=== PATIENT | male | born 1975 | race Caucasian/White ===

== ENCOUNTER 2019-01-09 15:09 | Emergency (ER) | payer SELFPAY ==
[~2019-01-09] VITALS: Ht 177.8 cm; Wt 95.3 kg
[2019-01-09 15:10] VITALS: BP 156/109
--- NOTE | 2019-01-09 15:12 | NUR ---
PT BROUGHT IN BY [place] [facility] TO ER BED 03
--- NOTE | 2019-01-09 15:15 | NUR ---
PT BIB BY PD FOR PREBOOK. PATIENT HAS HX OF MENTAL ILLNESS AND NEEDS TO BE MEDICALLY CLEARED PER PD. NO S/S OF DISTRESS NOTED AT THIS TIME
[2019-01-09] MEDS ORDERED: VENL150C1 PO (15:24)
[2019-01-09] MEDS ORDERED: SUMA100T1 PO (15:24)
[2019-01-09] MEDS ORDERED: LAM25 PO (15:24)
[2019-01-09] MEDS ORDERED: VENLAFAXINE 37.5 MG TAB PO STA (15:54)
[2019-01-09] MEDS ORDERED: VENLAFAXINE XR 75 MG CAPER PO STA (16:15)
[2019-01-09 16:43] VITALS: BP 156/109
--- NOTE | 2019-01-09 16:43 | NUR ---
PATIENT BIB [employer]. PATIENT EXAMINED BY DR. GHOTRA. PATIENT MEDICALLY CLEARED AND RELEASED IN CUSTODY IN STABLE CONDITION. ORIGINAL PRE-BOOK FORM GIVEN TO THE OFFICER
== END 2019-01-09 16:43 ==
LOC: MED 15:09
DX: F32.9 Major depressive disorder, single episode, unspecified (principal); Z02.89 Encounter for other administrative examinations; Z79.899 Other long term (current) drug therapy
CPT/HCPCS: 99284